=== PATIENT | male | born 1965 | race Caucasian/White ===

== ENCOUNTER 2018-04-16 09:35 | Emergency (ER) | payer OTHER ==
--- NOTE | 2018-04-16 10:21 | ERPHSYRPT ---
- History of Present Illness Time Seen by Provider: 04/16/18 10:05 Source: patient, family Patient Subjective Stated Complaint: C/o swelling to left and right thighs. Large amt of swelling noted to left thigh. States swelling noticed for past 3-4 weeks. Noticed while hospitalized for liver and kidney problems. Denies known injury. Triage Nursing Assessment: AAox3, color slightly pale, resp easy, lung sounds clear bilaterally, abd soft, bowel sounds heard. No edema to extremeties noted. Physician History: 53 y/o emmanuelle male, recently discharged from hospital for tx of liver and kidney failure, presents with enlarging bilat ant thighs left larger than right and associated tenderness. present for 3 weeks. just over 4 weeks ago, pt was lifting a heavy item at home and felt as though his bilat thighs were being ripped apart. Method of Injury: other (no direct injury to area) Occurred: other (4 weeks) Severity of Pain-Max: moderate Severity of Pain-Current: moderate (with palpation) Lower Extremities Pain: thigh: bilateral (anteriorly) Modifying Factors: Improves With: rest (less painful) Associated Symptoms: none Allergies/Adverse Reactions: No Known Drug Allergies Allergy (Unverified 04/16/18 09:56) Home Medications: Bumetanide 1 mg [Bumex 1 mg] 04/16/18 [History] Magnesium Oxide [Magnesium] 500 mg PO BID 04/16/18 [History] Metformin HCl 500 mg [Glucophage 500 MG] 500 mg PO BIDWM 04/16/18 [History ] PANTOPRAZOLE 40 mg Tablet [Protonix 40MG Tablet] 40 mg PO DAILY 04/16/18 [ History] Hx Tetanus, Diphtheria Vaccination/Date Given: No Hx Influenza Vaccination/Date Given: No Hx Pneumococcal Vaccination/Date Given: No Immunizations Up to Date: Yes - Review of Systems Constitutional: No Symptoms Eyes: No Symptoms Ears, Nose, & Throat: No Symptoms Respiratory: No Symptoms, No Cough, No Dyspnea, No Stridor, No Wheezing Cardiac: No Symptoms Abdominal/Gastrointestinal: No Symptoms Genitourinary Symptoms: No Symptoms Musculoskeletal: Myalgias (bilat ant thighs) Skin: No Symptoms Neurological: No Symptoms Psychological: No Symptoms Endocrine: No Symptoms Hematologic/Lymphatic: No Symptoms Immunological/Allergic: No Symptoms All Other Systems: Reviewed and Negative - Past Medical History Pertinent Past Medical History: Yes Neurological History: No Pertinent History Cardiac History: No Pertinent History Respiratory History: No Pertinent History Endocrine Medical History: Diabetes Type II, Liver Disease, Other Musculoskeletal History: No Pertinent History GI Medical History: No Pertinent History History: No Pertinent History Psycho-Social History: No Pertinent History Male Reproductive Disorders: No Pertinent History Other Medical History: Hep C, anemia - Past Surgical History Past Surgical History: No Neuro Surgical History: No Pertinent History Cardiac: No Pertinent History Respiratory: No Pertinent History Gastrointestinal: No Pertinent History Genitourinary: No Pertinent History Musculoskeletal: No Pertinent History Male Surgical History: No Pertinent History - Social History Smoking Status: Former smoker Exposure to second hand smoke: Yes Drug Use: none Patient Lives Alone: No - Nursing Vital Signs Nursing Vital Signs: Initial Vital Signs Temperature 99.9 F 04/16/18 09:40 Pulse Rate 104 H 04/16/18 09:40 Respiratory Rate 20 04/16/18 09:40 Blood Pressure 128/74 04/16/18 09:40 O2 Sat by Pulse Oximetry 98 04/16/18 09:40 Pain Scale Pain Intensity 8 - Physical Exam General Appearance: mild distress, alert Eyes, Ears, Nose, Throat Exam: normal ENT inspection, moist mucous membranes Neck Exam: normal inspection, non-tender, supple, full range of motion Cardiovascular/Respiratory Exam: chest non-tender, normal breath sounds, regular rate/rhythm Gastrointestinal/Abdominal Exam: non-tender, soft, no organomegaly, no hernia, No guarding, No tenderness Back Exam: normal inspection, normal range of motion, No CVA tenderness, No vertebral tenderness Hips Exam: bilateral: non-tender, normal inspection, normal range of motion, no evidence of injury Legs Exam: bilateral leg: normal range of motion, no evidence of injury, soft tissue tenderness, swelling Knees Exam: bilateral knee: non-tender, normal inspection, normal range of motion, no evidence of injury Ankle Exam: bilateral ankle: non-tender, normal inspection, normal range of motion, no evidence of injury Foot Exam: bilateral foot: non-tender, normal inspection, normal range of motion , no evidence of injury Neuro/Tendon Exam: normal sensation, normal motor functions, normal tendon functions Mental Status Exam: alert, oriented x 3, cooperative Skin Exam: normal color, warm, dry SpO2 Interpretation: normal SpO2: 98 Oxygen Delivery: Room Air - Course Nursing assessment & vital signs reviewed: Yes Ordered Tests: Active Orders 24 hr Category Date Time Status IV Insertion STAT Care 04/16/18 10:46 Active EXTREMITY NON VASCULAR [US] Routine Exams 04/16/18 10:48 Completed EXTREMITY NON VASCULAR [US] Stat Exams 04/16/18 10:26 Completed MRI LOWER EXT W & W/O [MRI] Routine Exams 04/16/18 13:45 Taken MRI LOWER EXT W & W/O [MRI] Stat Exams 04/16/18 12:36 Taken VENOUS BILATERAL EXTREMITY [US] Stat Exams 04/16/18 10:27 Completed CBC W DIFF Stat Lab 04/16/18 10:40 Completed CK-Creatinine Phosphokinase Stat Lab 04/16/18 10:40 Completed CMP Stat Lab 04/16/18 10:40 Completed Myoglobin Stat Lab 04/16/18 10:40 Completed PT INR [PROTIME WITH INR] Stat Lab 04/16/18 14:34 Completed Medication Summary Discontinued Medications Generic Name Dose Route Start Last Admin Trade Name Freq PRN Reason Stop Dose Admin Hydromorphone HCl Confirm 04/16/18 12:11 Hydromorphone 1 Mg/Ml Ampule Administered 04/16/18 12:12 Dose 1 mg .ROUTE .STK-MED ONE Hydromorphone HCl 1 mg 04/16/18 13:45 04/16/18 14:33 Hydromorphone 1 Mg/Ml Ampule IV 04/16/18 13:46 1 mg STAT ONE Administration Sodium Chloride 500 mls @ 500 mls/hr 04/16/18 13:57 04/16/18 14:52 Sodium Chloride 0.9% 500 Ml IV 04/16/18 14:56 500 mls/hr .Q1H ONE Administration Sodium Chloride Confirm 04/16/18 14:32 Sodium Chloride 0.9% 1000 Ml Administered 04/16/18 14:33 Dose 1,000 mls @ ud .ROUTE .STK-MED ONE Sodium Chloride Confirm 04/16/18 14:51 Sodium Chloride 0.9% 500 Ml Administered 04/16/18 14:52 Dose 500 mls @ ud IV .STK-MED ONE Ondansetron HCl Confirm 04/16/18 12:11 Zofran 4 Mg/2 Ml Vial Administered 04/16/18 12:12 Dose 4 mg .ROUTE .STK-MED ONE Ondansetron HCl 4 mg 04/16/18 13:45 04/16/18 14:33 Zofran 4 Mg/2 Ml Vial IV 04/16/18 13:46 4 mg STAT ONE Administration Lab/Rad Data: Laboratory Result Diagrams 04/16/18 10:40 04/16/18 10:40 Laboratory Results 04/16/18 04/16/18 04/16/18 Range/Units 14:34 10:40 10:40 WBC 12.2 H (4.0-10.5) K/mm3 RBC 3.04 L (4.1-5.6) M/mm3 Hgb 9.3 L (12.5-18.0) gm/dl Hct 30.3 L (42-50) % MCV 99.7 (78-100) fl MCH 30.5 (26-32) pg MCHC 30.7 L (32-36) g/dl RDW 17.0 H (11.5-14.0) % Plt Count 94 L (150-450) K/mm3 MPV 10.2 H (6-9.5) fl Gran % 87.9 H (36.0-66.0) % Eos # (Auto) 0.07 (0-0.5) Absolute Lymphs (auto) 0.69 L (1.0-4.6) Absolute Monos (auto) 0.68 (0.0-1.3) Lymphocytes % 5.7 L (24.0-44.0) % Monocytes % 5.6 (0.0-12.0) % Eosinophils % 0.6 (0.00-5.0) % Basophils % 0.2 (0.0-0.4) % Absolute Granulocytes 10.73 H (1.4-6.9) Basophils # 0.02 (0-0.4) PT 14.8 H (8.83-12.87) SECONDS INR 1.27 (0.8-3.0) Sodium 133 L (137-145) mmol/L Potassium 4.3 (3.5-5.1) mmol/L Chloride 102 (98-107) mmol/L Carbon Dioxide 27 (22-30) mmol/L Anion Gap 8.9 (5-15) MEQ/L BUN 16 (9-20) mg/dL Creatinine 0.89 (0.66-1.25) mg/dL Estimated GFR > 60.0 ML/MIN Glucose 247 H (74-106) mg/dL Calcium 8.4 (8.4-10.2) mg/dL Total Bilirubin 2.20 H (0.2-1.3) mg/dL AST 34 (17-59) U/L ALT 21 (0-50) U/L Alkaline Phosphatase 274 H (38-126) U/L Creatine Kinase 21 L (55-170) U/L Myoglobin 21.3 (0-121.0) ng/mL Serum Total Protein 8.7 H (6.3-8.2) g/dL Albumin 3.1 L (3.5-5.0) g/dL Slides for Path Review YES - Progress Progress: improved, pain not gone completely, re-examined Progress Note: 04/16/18 12:32 bilat venous doppler-negative for dvt. subcutaneous masses bilat ant thigh. unknown type. dr. ayala recommends mri to better define. homa in billing and registration verified ok for ED to order. 04/16/18 14:[address] ayala. mri-rupture of bilat vastus medialus muscle. no tumors Counseled pt/family regarding: lab results, diagnosis, need for follow-up, rad results - Departure Time of Disposition: 14:59 Departure Disposition: Home Clinical Impression: Muscle rupture Condition: Stable Critical Care Time: No Referrals: ERIN [facility]APA [facility]ER [Primary Care Provider] - Additional Instructions: drink plenty of fluids. follow up with orthopedic surgeon. call your primary doctor today to arrange. Prescriptions: Oxycodone HCl/Acetaminophen [Percocet 5-325 mg Tablet] 1 each PO Q8H PRN PRN # 12 tablet MDD 3 PRN Reason: Pain
[2018-04-16 10:45] LABS: BASOPHIL % 0.2 % (0.0-0.4); Basophil (Absolute #) 0.02 (0-0.4); Eosinophil % 0.6 % (0.00-5.0); Eosinophil (Absolute #) 0.07 (0-0.5); Granulocyte Absolute (ANC) 10.73 (1.4-6.9); Granulocytes % 87.9 % (36.0-66.0); Hematocrit 30.3 % (42-50); Hemoglobin 9.3 gm/dl (12.5-18.0); Lymphocyte (Absolute #) 0.69 (1.0-4.6); Lymphocytes % 5.7 % (24.0-44.0); Mean Cell Volume 99.7 fl (78-100); Mean Corpuscular Hgb Concent. 30.7 g/dl (32-36); Mean Platelet Volume 10.2 fl (6-9.5); Monocyte (Absolute #) 0.68 (0.0-1.3); Monocytes % 5.6 % (0.0-12.0); Platelet Count 94 K/mm3 (150-450); Red Blood Count 3.04 M/mm3 (4.1-5.6); White Blood Count 12.2 K/mm3 (4.0-10.5)
[2018-04-16 10:47] LABS: Mean Corpuscular Hemoglobin 30.5 pg (26-32)
[2018-04-16 11:05] LABS: ALBUMIN 3.1 g/dL (3.5-5.0); ALKALINE PHOSPHATASE 274 U/L (38-126); ANION GAP 8.9 MEQ/L (5-15); BLOOD UREA NITROGEN 16 mg/dL (9-20); CHLORIDE 102 mmol/L (98-107); CK-Creatinine Phosphokinase 21 U/L (55-170); Calcium 8.4 mg/dL (8.4-10.2); Carbon Dioxide 27 mmol/L (22-30); Creatinine 1 0.89 mg/dL (0.66-1.25); Glucose 247 mg/dL (74-106); Myoglobin 21.3 ng/mL (0-121.0); Potassium 4.3 mmol/L (3.5-5.1); SGOT/AST 34 U/L (17-59); SGPT/ALT 21 U/L (0-50); SODIUM 133 mmol/L (137-145); Total Protein 8.7 g/dL (6.3-8.2)
[2018-04-16 11:07] LABS: Slide Review 1 YES
--- NOTE | 2018-04-16 11:39 | XRAY ---
Indication: Bilateral leg swelling. Two-dimensional sonogram and color Doppler imaging of the major venous vessels of the left and right leg was performed. Comparison: None No thrombus seen in the examined deep venous vessels of the left and right leg including greater saphenous veins. Veins demonstrate normal compressibility. Venous waveforms are normal with and without augmentation. Impression: Left and right legs negative for DVT.
--- NOTE | 2018-04-16 11:40 | XRAY ---
Indication: Anterior thigh lump. Two-dimensional targeted soft tissue ultrasound of the anterior right thigh performed in the region of interest where there is a deep 10.0 x 3.1 x 5.7 cm cystic mass with low-level internal echoes just adjacent to the femur. It also demonstrates thick echogenic capsule with color Doppler flow. Partial differential includes inflammatory/infectious fluid collection, walled off hematoma, or soft tissue malignancy with necrosis. Correlate with clinical history. MRI with contrast may yield further information.
--- NOTE | 2018-04-16 11:44 | XRAY ---
Indication: Anterior thigh lump. Two-dimensional targeted soft tissue ultrasound of the anterior left thigh performed in the region of interest where there is a deep well-circumscribed 12.3 x 6.6 x 9.1 cm echogenic soft tissue mass adjacent to the femur with petechial color Doppler flow. Rule out benign and malignant soft tissue masses. MRI with contrast may yield further information.
[2018-04-16] MEDS ORDERED: Hydromorphone 1 mg/ml Ampule ONE (12:11)
[2018-04-16] MEDS ORDERED: Zofran 4 MG/2 ML VIAL ONE (12:11)
[2018-04-16] MEDS ORDERED: Hydromorphone 1 mg/ml Ampule IV ONE (13:45)
[2018-04-16] MEDS ORDERED: Zofran 4 MG/2 ML VIAL IV ONE (13:45)
[2018-04-16] MEDS ORDERED: Sodium Chloride 0.9% 500 ML 500 ML IV ONE ×2 (13:57→14:51)
[2018-04-16] MEDS ORDERED: Sodium Chloride 0.9% 1000 ML 0 ML ONE (14:32)
[2018-04-16 14:51] LABS: INR 1.27 (0.8-3.0)
--- NOTE | 2018-04-16 15:09 | XRAY ---
Indication: Large anterior thigh mass. Abnormal same day soft tissue ultrasound. Patient reports lifting injury February 2018. Axial, coronal, and sagittal MRI right thigh performed using pre-and post T1, T2 and STIR sequences. 10 cc Magnevist contrast used. Comparison: None There is muscular rupture of the mid to distal vastus intermedius muscle with large hematoma measuring 2.9 x 7.0 x 8.8 cm in greatest AP, transverse, and CC projections respectively with peripheral enhancement. The adjacent surrounding quadriceps muscle group demonstrates T2 edema signal either reactive versus acute strain injury. Small free fluid seen between the muscle planes. There is slight effacement of the femoral artery/vein. No acute fracture, suspicious bony lesions, osseous destructive process, or abnormal bone marrow signal. Impression: Distal vastus intermedius muscle tear/rupture with large hematoma as detailed effacing the femoral artery/vein. T2 signal of the adjacent surrounding quadriceps muscle either reactive versus additional acute strain injury. Comment: Case was discussed with the ordering clinician at 1455 hrs. on April 16, 2018.
--- NOTE | 2018-04-16 15:13 | XRAY ---
Indication: Large anterior thigh mass. Abnormal same day soft tissue ultrasound. Patient reports lifting injury February 2018. Axial, coronal, and sagittal MRI left thigh performed using pre-and post T1, T2 and STIR sequences. 10 cc Magnevist contrast used. Comparison: None There is muscular rupture of the mid to distal vastus intermedius muscle with large hematoma measuring 6.2 x 7.1 x 11.6 cm in greatest AP, transverse, and CC projections respectively with peripheral enhancement. The adjacent surrounding quadriceps muscle group demonstrates T2 edema signal either reactive versus acute strain injury. Small free fluid seen between the muscle planes. There is slight effacement of the femoral artery/vein. No acute fracture, suspicious bony lesions, osseous destructive process, or abnormal bone marrow signal. Impression: Vastus intermedius muscle tear/rupture with large hematoma as detailed effacing the femoral artery/vein. T2 signal of the adjacent surrounding quadriceps muscle either reactive versus additional acute strain injury. Comment: Case was discussed with the ordering clinician at 1455 hrs. on April 16, 2018.
[2018-04-16 15:23] VITALS: BP 124/75; PULSE 98; O2SAT 97
== END 2018-04-16 15:39 | disposition home or self-care (01) ==
LOC: ED 09:35
DX: M62.152 Other rupture of muscle (nontraumatic), left thigh (principal); M62.151 Other rupture of muscle (nontraumatic), right thigh; Z79.899 Other long term (current) drug therapy; E11.9 Type 2 diabetes mellitus without complications; Z79.84 Long term (current) use of oral hypoglycemic drugs
CPT/HCPCS: 36000; 36415; 73720; 76881; 80053; 82550; 83874; 85025; 85610; 93970; 96374; 96375; 99284; J1170; J2405